=== PATIENT | female | born 2000 | race African-American/Black ===

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

== ENCOUNTER 2024-04-05 13:50 | Observation (INO) | payer MEDICAID ==
[~2024-04-05 13:50] MED LIST changes: -NIF10C PO; +NIFE10CA52 PO
== END 2024-04-05 14:10 | disposition home or self-care (01) ==
LOC: LDRP 13:50 → UNDOADMOB 13:50 → LDRP 14:06 → UNDODISOB 14:10
PROVIDERS: ADMIT Obstetrics & Gynecology; ATTEND Obstetrics & Gynecology
DX: O09.292 Supervision of pregnancy with other poor reproductive or obstetric history, second trimester (principal); O62.9 Abnormality of forces of labor, unspecified; O99.322 Drug use complicating pregnancy, second trimester; F12.90 Cannabis use, unspecified, uncomplicated; Z87.59 Personal history of other complications of pregnancy, childbirth and the puerperium; Z3A.27 27 weeks gestation of pregnancy
CPT/HCPCS: 59025; 81002; 94760; G0378

== ENCOUNTER 2024-04-12 12:17 | Observation (INO) | payer MEDICAID | END 2024-04-12 13:32 | disposition home or self-care (01) | LOC: LDRP 12:17 | PROVIDERS: ADMIT Obstetrics & Gynecology; ATTEND Obstetrics & Gynecology | DX: O09.292 Supervision of pregnancy with other poor reproductive or obstetric history, second trimester (principal); O99.322 Drug use complicating pregnancy, second trimester; F12.90 Cannabis use, unspecified, uncomplicated; Z3A.28 28 weeks gestation of pregnancy | CPT/HCPCS: 59025; 81002; G0378 ==

== ENCOUNTER 2024-04-19 11:11 | Observation (INO) | payer MEDICAID ==
[~2024-04-19 11:11] MED LIST changes: +ACET500T58 PO; +AMOX875T4 PO
== END 2024-04-19 14:12 | disposition home or self-care (01) ==
LOC: LDRP 13:18
PROVIDERS: ADMIT Obstetrics & Gynecology; ATTEND Obstetrics & Gynecology
DX: O62.9 Abnormality of forces of labor, unspecified (principal); Z3A.29 29 weeks gestation of pregnancy; Z79.899 Other long term (current) drug therapy
CPT/HCPCS: 59025; 81002; 94760; G0378

== ENCOUNTER 2024-04-26 04:41 | Observation (INO) | payer MEDICAID ==
[~2024-04-26] VITALS: Ht 149.9 cm; Wt 60.3 kg
== END 2024-05-03 15:10 | disposition home or self-care (01) ==
LOC: LDRP 05-03 13:10
PROVIDERS: ADMIT Obstetrics & Gynecology; ATTEND Obstetrics & Gynecology
DX: O09.93 Supervision of high risk pregnancy, unspecified, third trimester (principal); Z3A.31 31 weeks gestation of pregnancy; Z87.59 Personal history of other complications of pregnancy, childbirth and the puerperium
CPT/HCPCS: 59025; 76818; 81002; 94760; G0378

== ENCOUNTER 2024-05-05 13:10 | Observation (INO) | payer MEDICAID | END 2024-05-05 15:20 | disposition home or self-care (01) | LOC: UNDOADMOB 13:10 → LDRP 13:10 | PROVIDERS: ADMIT Obstetrics & Gynecology; ATTEND Obstetrics & Gynecology | DX: O36.8330 Maternal care for abnormalities of the fetal heart rate or rhythm, third trimester, not applicable or unspecified (principal); Z3A.32 32 weeks gestation of pregnancy | CPT/HCPCS: 59025; 76818; 81002; G0378 ==

== ENCOUNTER 2024-05-10 12:45 | Observation (INO) | payer MEDICAID | END 2024-05-10 14:55 | disposition home or self-care (01) | LOC: LDRP 12:45 | PROVIDERS: ADMIT Obstetrics & Gynecology; ATTEND Obstetrics & Gynecology | DX: O42.913 Preterm premature rupture of membranes, unspecified as to length of time between rupture and onset of labor, third trimester (principal); Z3A.32 32 weeks gestation of pregnancy | CPT/HCPCS: 59025; 76818; 81002; G0378 ==

== ENCOUNTER 2024-05-12 11:42 | Observation (INO) | payer MEDICAID | END 2024-05-12 13:08 | disposition home or self-care (01) | LOC: LDRP 11:42 | PROVIDERS: ADMIT Obstetrics & Gynecology; ATTEND Obstetrics & Gynecology | DX: O60.03 Preterm labor without delivery, third trimester (principal); Z3A.33 33 weeks gestation of pregnancy; Z79.899 Other long term (current) drug therapy | CPT/HCPCS: 59025; 76818; 81002; 94760; G0378 ==

== ENCOUNTER 2024-05-17 12:34 | Observation (INO) | payer MEDICAID | END 2024-05-17 15:00 | disposition home or self-care (01) | LOC: UNDOADMOB 12:34 → LDRP 12:34 | PROVIDERS: ADMIT Obstetrics & Gynecology; ATTEND Obstetrics & Gynecology | DX: O60.03 Preterm labor without delivery, third trimester (principal); Z3A.33 33 weeks gestation of pregnancy | CPT/HCPCS: 59025; 76818; 81002; 94760; G0378 ==

== ENCOUNTER 2024-05-19 12:45 | Observation (INO) | payer MEDICAID | END 2024-05-19 15:00 | disposition home or self-care (01) | LOC: UNDOADMOB 12:45 → LDRP 12:45 | PROVIDERS: ADMIT Obstetrics & Gynecology; ATTEND Obstetrics & Gynecology | DX: O60.03 Preterm labor without delivery, third trimester (principal); O99.323 Drug use complicating pregnancy, third trimester; F12.90 Cannabis use, unspecified, uncomplicated; Z3A.34 34 weeks gestation of pregnancy | CPT/HCPCS: 59025; 76818; 81002; 94760; G0378 ==

== ENCOUNTER 2024-05-24 06:48 | Observation (INO) | payer MEDICAID | END 2024-05-24 14:22 | disposition home or self-care (01) | LOC: UNDOADMOB 12:48 → LDRP 12:48 | PROVIDERS: ADMIT Obstetrics & Gynecology; ATTEND Obstetrics & Gynecology | DX: O60.03 Preterm labor without delivery, third trimester (principal); Z3A.34 34 weeks gestation of pregnancy; Z79.899 Other long term (current) drug therapy | CPT/HCPCS: 59025; 76818; 81002; 94760; G0378 ==

== ENCOUNTER 2024-05-26 14:30 | Observation (INO) | payer MEDICAID | END 2024-05-26 16:28 | disposition home or self-care (01) | LOC: LDRP 14:30 | PROVIDERS: ADMIT Obstetrics & Gynecology; ATTEND Obstetrics & Gynecology | DX: O60.03 Preterm labor without delivery, third trimester (principal); Z3A.35 35 weeks gestation of pregnancy; Z98.890 Other specified postprocedural states; Z79.899 Other long term (current) drug therapy | CPT/HCPCS: 59025; 76818; 81002; 94760; G0378 ==

== ENCOUNTER 2024-05-31 12:53 | Observation (INO) | payer MEDICAID | END 2024-05-31 14:45 | disposition home or self-care (01) | LOC: UNDOADMOB 12:53 → LDRP 12:53 | PROVIDERS: ADMIT Obstetrics & Gynecology; ATTEND Obstetrics & Gynecology | DX: O60.03 Preterm labor without delivery, third trimester (principal); O99.323 Drug use complicating pregnancy, third trimester; F12.90 Cannabis use, unspecified, uncomplicated; Z3A.35 35 weeks gestation of pregnancy | CPT/HCPCS: 59025; 76818; 81002; 94760; G0378 ==

== ENCOUNTER 2024-06-02 12:18 | Observation (INO) | payer MEDICAID | END 2024-06-02 14:28 | disposition home or self-care (01) | LOC: LDRP 13:14 → UNDOADMOB 13:14 → LDRP 13:22 | PROVIDERS: ADMIT Obstetrics & Gynecology; ATTEND Obstetrics & Gynecology | DX: O60.03 Preterm labor without delivery, third trimester (principal); Z3A.36 36 weeks gestation of pregnancy; Z79.899 Other long term (current) drug therapy; Z98.890 Other specified postprocedural states | CPT/HCPCS: 59025; 76818; 81002; 94760; G0378 ==

== ENCOUNTER 2024-06-07 07:32 | Observation (INO) | payer MEDICAID | END 2024-06-07 14:31 | disposition home or self-care (01) | LOC: UNDOADMOB 12:48 → LDRP 12:48 | PROVIDERS: ADMIT Obstetrics & Gynecology; ATTEND Obstetrics & Gynecology | DX: Z34.83 Encounter for supervision of other normal pregnancy, third trimester (principal); Z3A.36 36 weeks gestation of pregnancy; Z79.899 Other long term (current) drug therapy; Z98.890 Other specified postprocedural states | CPT/HCPCS: 59025; 76818; 81002; 94760; G0378 ==

== ENCOUNTER 2024-06-09 12:49 | Observation (INO) | payer MEDICAID ==
[~2024-06-09 12:49] MED LIST changes: -ACET500T58 PO; -AMOX875T4 PO; -NIFE10CA52 PO
== END 2024-06-09 14:35 | disposition home or self-care (01) ==
LOC: LDRP 12:49
PROVIDERS: ADMIT Obstetrics & Gynecology; ATTEND Obstetrics & Gynecology
DX: O09.293 Supervision of pregnancy with other poor reproductive or obstetric history, third trimester (principal); Z3A.37 37 weeks gestation of pregnancy; Z87.59 Personal history of other complications of pregnancy, childbirth and the puerperium
CPT/HCPCS: 59025; 76818; 81002; 94760; G0378

== ENCOUNTER 2024-06-11 21:51 | Observation (INO) | payer MEDICAID | END 2024-06-11 23:31 | disposition home or self-care (01) | LOC: LDRP 21:51 | PROVIDERS: ADMIT Obstetrics & Gynecology; ATTEND Obstetrics & Gynecology | DX: O47.1 False labor at or after 37 completed weeks of gestation (principal); O42.92 Full-term premature rupture of membranes, unspecified as to length of time between rupture and onset of labor; O26.893 Other specified pregnancy related conditions, third trimester; N89.8 Other specified noninflammatory disorders of vagina; Z3A.37 37 weeks gestation of pregnancy | CPT/HCPCS: 59025; 81002; 94760; G0378 ==

== ENCOUNTER 2024-06-14 01:37 | Inpatient (IN) | payer MEDICAID ==
[~2024-06-14] VITALS: Ht 147.3 cm; Wt 64.4 kg
[2024-06-14] MEDS ORDERED: NALBUPHINE HCL 10 MG/1ml INJECTION IM PRN (23:00)
[2024-06-14] MEDS ORDERED: NALBUPHINE HCL 10 MG/1ml INJECTION IV PRN (23:00)
[2024-06-14] MEDS ORDERED: LIDOCAINE 2%HCL (LOCAL ANESTH.) INJ 20ML MDV IJ PRN (23:00)
[2024-06-14] MEDS: LACT. RINGERS/OXYTOCIN 20UNITS 1,000 ML IV ONE (23:10)
[2024-06-14] MEDS: ONDANSETRON HCL 4 MG/2 ML VIAL IV PRN (23:12)
[2024-06-14] MEDS: ONDANSETRON HCL 4 MG/2 ML VIAL ONE (23:12)
[2024-06-14] MEDS: LACTATED RINGER'S 1,000 ML IV SCH (23:12)
[2024-06-14] MEDS: PHISODERM TOP SOLN 240ML BTL TOP PRN (23:14)
[2024-06-14] MEDS: WITCH HAZEL-GLYCERIN PAD TOP PRN (23:14)
[2024-06-14] MEDS: DERMOPLAST 60ML BOTTLE TOP PRN (23:14)
[2024-06-14 23:32] LABS: Basophils # (auto) 0 10 ^3/uL (0-0.2); Basophils % (auto) 0.1 % (0.0-2.0); Eosinophils # (auto) 0 10 ^3/uL (0-0.8); Eosinophils % (auto) 0.1 % (0.0-7.0); Lymphocytes # (auto) 1.7 10 ^3/uL (0.4-5.4); Monocytes # (auto) 0.6 10 ^3/uL (0-1.3); Nucleated Red Blood Cells % 0.1 %
[2024-06-14 23:34] LABS: Hematocrit 27.5 % (36.0-46.0); Lymphocytes % (auto) 23.8 % (10.0-50.0); Mean Corpuscular Hemoglobin 24.2 pg (28.0-32.0); Mean Corpuscular Hgb Conc. 32.8 g/dL (32.0-36.0); Mean Corpuscular Volume 73.8 fL (80.0-100.0); Neutrophils # (auto) 4.8 10 ^3/uL (1.6-8.6); Platelet Count (auto) 355 10^3/uL (140-450); Red Blood Cells 3.73 10^6/uL (4.0-5.20); Red Cell Distribution Width 18.3 % (11.8-14.3); White Blood Cell 7.1 10^3/uL (4.4-10.8)
[2024-06-14] MEDS ORDERED: ePHEDrine SULFATE 50 MG/ML AMP IV ONE (23:45)
[2024-06-14] MEDS ORDERED: NALOXONE HCL 0.4 MG/ML VIAL IV ONE (23:45)
[2024-06-14 23:49] LABS: Albumin 3.8 g/dL (3.2-4.8); Alkaline Phosphatase 267 U/L (46-116); Anion Gap 9 (5-15); Aspartate Aminotransferase 12 U/L (13-40); Calcium 9.2 mg/dL (8.7-10.4); Carbon Dioxide 22 mmol/L (20-31); Chloride 107 mmol/L (98-107); Glucose 84 mg/dL (74-106); Potassium 3.4 mmol/L (3.5-5.1); Sodium 138 mmol/L (136-145)
[2024-06-14 23:50] LABS: Bilirubin, Total 0.4 mg/dL (0.2-1.0); Total Protein 6.8 g/dL (5.7-8.2)
[2024-06-14 23:51] LABS: Alanine Aminotransferase 9 U/L (7-40); BUN/Creatinine Ratio 10.2 (10.0-20.0); Blood Urea Nitrogen < 5 mg/dL (9-23)
[2024-06-14 23:52] LABS: INR 0.97 (0.9-1.15); Partial Thromboplastin Time 25.1 SEC (24.5-34.5); Prothrombin Time 10.3 sec (9.3-11.8)
--- NOTE | 2024-06-15 00:02 | DVHHP2 ---
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 Presented with active labor, membranes intact, 5cm dilated on arrival. Pain is moderate to severe. Denies vaginal bleeding GBS neg. Past Medical History Cardiac: No pertinent Hx Pulmonary: No pertinent Hx Central Nervous System: No pertinent Hx GI: No pertinent Hx Hemotology/Oncology: Anemia NOS Hepatobiliary: No pertinent Hx Psychiatric: No pertinent Hx Musculoskeletal: No pertinent Hx Rheumotologic: No pertinent Hx Infectious Disease: No peritnent Hx ENT: No pertinent Hx Renal/: No pertinent Hx Endocrine: No pertinent Hx Dermatology: No pertinent Hx Past Surgical History: No pertinent Hx OB History OB History Care: Good Care Ultrasounds: Normal mid trimester US Obstetrical Complications: None Medical Complications: None Other Concerns: Moderate microcytic anemia, Hb 9.0 Allergies: Coded Allergies: NO KNOWN ALLERGIES (Unverified , 02/26/20) Home Meds Reported Medications Vit W/ Ferrous Fumara ( One Daily) Daily Tab, 1 TAB PO DAILY, #90 TAB 3 Refills 03/14/20 Current Medications Current Medications Medications (Trade) Dose Ordered Sig/Ivan Route PRN Reason Start Time Stop Time Status Last Admin Lactated Ringer's 1,000 ml @ 125 mls/hr Q8H IV 06/14/24 23:00 06/14/24 23:12 Nalbuphine HCl (Nubain) 10 mg Q4HP PRN IM MODERATE PAIN (4-6 PAIN SCALE) 06/14/24 23:00 Nalbuphine HCl (Nubain) 10 mg Q4HP PRN IV MODERATE PAIN (4-6 PAIN SCALE) 06/14/24 23:00 Witfrida Ayoubel (Tucks) 1 pad PRN PRN TOP PERINEAL AREA DISCOMFORT 06/14/24 23:00 06/14/24 23:14 Sodium Lauryl Sulfate (Phisoderm) 240 ml PRN PRN TOP PERINEAL AREA DISCOMFORT 06/14/24 23:00 06/14/24 23:14 Benzocaine (Dermoplast) 1 applic PRN PRN TOP PERINEAL AREA DISCOMFORT 06/14/24 23:00 06/14/24 23:14 Lidocaine HCl (Xylocaine) 20 ml ONCE PRN IJ PERINEAL AREA DISCOMFORT 06/14/24 23:00 Ondansetron HCl (Zofran) 4 mg Q4HPRN PRN IV NAUSEA / VOMITING 06/14/24 23:00 06/14/24 23:12 Family & Social History Family/Social History Blood Type: A+ Rubella: immune RPR/VDRL: Negative GBS Status: Negative HBsAG: Negative Review of Systems Constitutional: No symptom reported Ears, Nose, & Throat: No symptom reported Eyes: No symptom reported Pulmonary/Respiratory: No symptom reported Cardiovascular: No symptom reported Gastrointestinal: No symptom reported Genitourinary: No symptom reported Musculoskeletal: No symptom reported Skin: No symptom reported Psychiatric: No symptom reported Endocrine: No symptom reported Hemotologic/Lymphatic: No symptom reported OB Admission Exam Physical Exam HEENT: NCAT Heart: Rhythm Normal Lungs: Clear Abdomen: Gravid Extremities: Normal Reflexes: Normal Pelvic Exam: RN exam 5/70/-2 VTX Heart Rate: 130's Accelerations: Accelerations Present Decelerations: No Decelerations Short Term Variability: Present Jail Variability: Average (6-25) Contractions on Admission: 6-10 Minutes Apart Intensity: Moderate OB Plan Plan Admitting Diagnosis: Early Term, IUP 37.5 wk in spontaneous labor Microcytic anemia GBS neg Plan: Expectant Management Other Plan: Admit for labor and delivery anticipated Epidural desired JELLY DAWSON DO Jun 15, 2024 00:02
[2024-06-15] MEDS: LACTATED RINGER'S 1,000 ML IV ONE (00:13)
[2024-06-15] MEDS: fentaNYL CITRATE 100 MCG/2 ML VL IV ONE (00:46)
[2024-06-15] MEDS: ROPIVACAINE HCL 200 ML ONE (00:47)
--- NOTE | 2024-06-15 01:06 | EPIDURAL ---
Anesthesia Procedural Note - Epidural Informed consent obtained?: Yes Medication Administered: Fentanyl 100 mcg Sterile prept drape: Yes Spinal level of insertion: L4-L5 Test dose of lidocaine & Epine: Negative Infusion started: Yes Start time: 00:19 End time: 00:55 Procedure description Procedure description: Called for labor analgesia. Chart reviewed, history taken and patient examined at 0019 (BP 134/75 HR 105 spO2 99). Patient is at 37+6, brought in by ambulance in labor, requesting epidural. Informed consent for CSE obtained. Sitting position, sterile prep and drape. Time out done at 0022 (BP 130/80 HR 108 spO2 99). L3-4 space infiltrated with 1% lido. Epidural needle placed with MARSHA at 4cm. A few drops of clear fluid from needle apparent after stylet removed, questionable for CSF. Needle removed. L4-5 space infiltrated with 1% lido. Epidural needle placed with MARSHA at 4.5 cm. 25G spinal needle +clear CSF. 15mcg fentanyl given IT. Epidural catheter secured at 9cm at 0033 (BP 131/70 HR 110 spO2 98). Aspiration and test dose (3cc 1.5% lido with epi) negative at 0034. 85mcg fentanyl 3cc 2% PF lido given via catheter (BP 119/63 HR 110 spO2 98). Patient reports pain relief. 0.2% ropivacaine infusion started at 0049 (119/65 HR 109 spO2 99). Will follow as needed. DON WILSON MD Jun 15, 2024 01:06
[2024-06-15 02:20] LABS: Amphetamine Screen, Urine Neg (NEGATIVE)
[2024-06-15 02:21] LABS: Barbiturate Scree,Urine Neg (NEGATIVE); Benzodiazephine Screen, Urine Neg (NEGATIVE); Cannabinoid Screen, Urine Neg (NEGATIVE); Cocaine Screen, Urine Neg (NEGATIVE); Opiate Scree,Urine Neg (NEGATIVE); Phencyclidine Screen, Urine Neg (NEGATIVE)
--- NOTE | 2024-06-15 02:21 | LDN2 ---
Labor and Delivery Note Date 06/15/24 Age 23 3 Para 3 EGA 37.6 Diagnosis Early Term IUP in spontaneous labor s/p Vaginal Delivery: VTX Vacuum Assisted: No Placenta: Spontaneous Sex: Female Weight Pending Apgars 8/9 Amniotic Fluid: Clear Anesthesia Epidural Episiotomy: No Repaired with N/A EBL 25 mL Labs Blood Bank 06/14/24 23:17: Blood Type A POSITIVE Complications None JELLY DAWSON DO Jun 15, 2024 02:21
[2024-06-15] MEDS: LACT. RINGERS/OXYTOCIN 20UNITS 500 ML IV ONE ×2 (02:44)
[2024-06-15] MEDS: LIDOCAINE HCL 2 %PF INJ 10ML AMP IJ ONE (02:45)
[2024-06-15] MEDS: IBUPROFEN 600 MG TAB PO PRN (04:38)
[2024-06-15 07:30] VITALS: BP 110/74; PULSE 71; RESP 18; TEMP 98.4; O2SAT 95
[2024-06-15 10:30] VITALS: BP 112/76; PULSE 72; RESP 18; TEMP 98.3; O2SAT 96
[2024-06-15] MEDS: ACETAMINOPHEN 325 MG TAB PO PRN (10:59)
[2024-06-15 14:08] LABS: Basophils # (auto) 0 10 ^3/uL (0-0.2); Basophils % (auto) 0.1 % (0.0-2.0); Eosinophils # (auto) 0 10 ^3/uL (0-0.8); Hemoglobin 9.3 g/dL (12.2-16.2); Lymphocytes # (auto) 1.8 10 ^3/uL (0.4-5.4); Lymphocytes % (auto) 16.2 % (10.0-50.0); Mean Corpuscular Hemoglobin 23.4 pg (28.0-32.0); Mean Corpuscular Hgb Conc. 32.2 g/dL (32.0-36.0); Mean Corpuscular Volume 72.8 fL (80.0-100.0); Monocytes # (auto) 0.9 10 ^3/uL (0-1.3); Monocytes % (auto) 8.4 % (0.0-12.0); Neutrophils # (auto) 8.3 10 ^3/uL (1.6-8.6); Neutrophils % (auto) 75.3 % (37.0-80.0); Nucleated Red Blood Cells % 0.1 %; Platelet Count (auto) 338 10^3/uL (140-450); Red Blood Cells 3.98 10^6/uL (4.0-5.20)
[2024-06-15 14:38] VITALS: BP 135/74; PULSE 90; RESP 16; TEMP 98.3
[2024-06-15 15:00] VITALS: BP 127/84; PULSE 84; RESP 16; TEMP 98.4; O2SAT 94
[2024-06-15 18:50] VITALS: BP 135/74; PULSE 90; RESP 16; TEMP 98.5
[2024-06-15] MEDS: POTASSIUM CHL 20 Meq TABLET PO ONE (20:02)
[2024-06-15 20:12] LABS: Protein, Urine 15.6 mg/dL (1-14)
[2024-06-15 20:14] LABS: Creatinine, Urine 61.76 mg/dL (30.0-125.0); Urine Protein/Creatinine Ratio 0.25
[2024-06-15] MEDS ORDERED: DOCUSATE SOD 100 MG CAP PO SCH (22:00)
[2024-06-15 22:55] VITALS: BP 115/74; PULSE 88; RESP 16; TEMP 98.7
[2024-06-16] MEDS ORDERED: ACET-1882 PO (00:10)
[2024-06-16] MEDS ORDERED: DOCU-265 PO (00:10)
[2024-06-16] MEDS ORDERED: DOCU-94 PO (00:10)
[2024-06-16] MEDS ORDERED: IBU600T PO (00:10)
[2024-06-16] MEDS ORDERED: FER325T PO (00:10)
--- NOTE | 2024-06-16 00:12 | DVHPN2 ---
Progress Note Date Seen: Jun 16, 2024 Subjective S: bleeding is less, eating food without issues, denies lightheaded/dizziness, pain well controlled with oral medications, no concerns with urinating, passing flatus, no BM yet, ambulating well, and formula vital signs Vital Sign Date Time Temp Pulse Resp B/P (MAP) Pulse Ox O2 Delivery O2 Flow Rate FiO2 06/15/24 22:55 98.7 88 16 115/74 (88) 98.7 06/15/24 19:10 Room Air 06/15/24 15:00 94 Total Intake and Output 06/15/24 06/15/24 06/16/24 15:00 23:00 07:00 Output Total 950 ml Balance -950 ml medications Current Medications Medications Dose Ordered Sig/Ivan Route Start Time Stop Time Status Last Admin Dose Admin Nalbuphine HCl 10 mg Q4HP PRN IM 06/14/24 23:00 Cancel Nalbuphine HCl 10 mg Q4HP PRN IV 06/14/24 23:00 Cancel Witch Melissa 1 pad PRN PRN TOP 06/14/24 23:00 06/14/24 23:14 1 PAD Sodium Lauryl Sulfate 240 ml PRN PRN TOP 06/14/24 23:00 06/14/24 23:14 240 ML Benzocaine 1 applic PRN PRN TOP 06/14/24 23:00 06/14/24 23:14 1 APPLIC Lidocaine HCl 20 ml ONCE PRN IJ 06/14/24 23:00 Cancel Ondansetron HCl 4 mg Q4HPRN PRN IV 06/14/24 23:00 06/14/24 23:12 4 MG Ibuprofen 600 mg Q6HP PRN PO 06/15/24 03:45 06/15/24 19:58 600 MG Acetaminophen 650 mg Q4HP PRN PO 06/15/24 03:45 06/15/24 19:57 650 MG Docusate Sodium 200 mg HS PO 06/15/24 22:00 laboratory and microbiology Laboratory Tests 06/15/24 13:51 06/14/24 23:17 Test 06/14/24 23:17 Range/Units Serum Glucose 84 74-106 mg/dL Objective O: VSS Chest: heart sounds normal and lung sounds clear bilaterally Abd: soft, non-tender, fundus at U/firm/midline, active bowel sounds, no rebound or guarding Perineum: intact perineum, no erythema/edema noted Ext: Non-tender, No edema, 2+ BLE DTRs Lochia: minimal See lab results Hypokalemia resolved with potassium 40 mEq PO once Problems(with codes): (1) (normal spontaneous vaginal delivery) (2) Intact perineum (3) Iron deficiency anemia of mother during Assessment/Plan A: 23yo now PPD#1 s/p Anemia Rh+ Rubella Immune and formula Pain control with PO medications Bowel regimen P: D/C home today Rx sent to pharmacy precautions and preeclampsia warning signs reviewed F/U with [facility] office in 2 weeks Plan discussed with: Patient AMY VEE CNM Jun 16, 2024 00:12
--- NOTE | 2024-06-16 00:12 | DVHDS2 ---
Obstetrics Discharge Summary Obstetrics Discharge Summary Date of Admission: Jun 14, 2024 Date of Discharge: Jun 16, 2024 Reason For Admission: Onset of Labor Procedures: NST Intrapartum Procedures: Spontaneous vaginal deliv Procedures: Hct/date: (06/15/24), Hgb/date: (06/15/24) Operative Complicat: None Discharge Diagnosis: Term -Delivered Discharge Information: Activity (as tolerated, no heavy lifting and nothing in the vagina for 6 weeks), Diet (Routine), Medications (Rx sent), Instructions (Routine), Discharge to (Home), Accompanied by (partner), Discarge date (06/16/24) AMY VEE CNM Jun 16, 2024 00:12
[2024-06-16 02:38] VITALS: BP 118/62; PULSE 79; RESP 16; TEMP 98.4
[2024-06-16] MEDS: HYDROcodone-ACET 5/325MG TAB PO PRN (06:01)
[2024-06-16 07:00] VITALS: BP 118/70; PULSE 77; RESP 16; TEMP 98.2
[2024-06-16 07:06] LABS: RPR Non Reactive (Non Reactive)
[2024-06-16 07:08] LABS: Urine Bacteria None Seen /hpf (None Seen)
[2024-06-16 08:04] LABS: Urine Blood 1+ /uL (Negative); Urine Clarity Clear (Clear); Urine Color Light-Yellow (Yellow); Urine Protein, UAD Negative (Negative); Urine Specific Gravity 1.005 (1.001-1.035); Urine Urobilinogen Normal (Negative); Urine WBC <1 /hpf (0 - 5)
[2024-06-16 09:35] LABS: Albumin 3.4 g/dL (3.2-4.8); Alkaline Phosphatase 216 U/L (46-116); Anion Gap 9 (5-15); Aspartate Aminotransferase 15 U/L (13-40); Calcium 9.2 mg/dL (8.7-10.4); Carbon Dioxide 23 mmol/L (20-31); Chloride 110 mmol/L (98-107); Glucose 91 mg/dL (74-106); Potassium 4.1 mmol/L (3.5-5.1); Sodium 142 mmol/L (136-145)
[2024-06-16 09:36] LABS: Bilirubin, Total 0.2 mg/dL (0.2-1.0); Total Protein 6.5 g/dL (5.7-8.2)
[2024-06-16 10:08] LABS: Alanine Aminotransferase 9 U/L (7-40); BUN/Creatinine Ratio 8.5 (10.0-20.0); Blood Urea Nitrogen < 5 mg/dL (9-23)
[2024-06-16 11:00] VITALS: BP 133/85; PULSE 83; RESP 18; TEMP 98.4
== END 2024-06-16 14:17 | disposition home or self-care (01) | DRG 560 ==
LOC: LDRP 22:35 → OBSVTOIN 22:49 → LDRP 22:50
PROVIDERS: ADMIT Obstetrics & Gynecology; ATTEND Obstetrics & Gynecology
PROC: 10E0XZZ Delivery of Products of Conception, External Approach (ICD-10-PCS; principal; 2024-06-15)
PROC: 3E0R3BZ Introduction of Anesthetic Agent into Spinal Canal, Percutaneous Approach (ICD-10-PCS; 2024-06-15)
PROC: 00HU33Z Insertion of Infusion Device into Spinal Canal, Percutaneous Approach (ICD-10-PCS; 2024-06-15)
DX: O99.02 Anemia complicating childbirth (principal); Z37.0 Single live birth; D50.9 Iron deficiency anemia, unspecified; Z3A.37 37 weeks gestation of pregnancy
CPT/HCPCS: 36415; 59025; 59409; 62282; 80053; 80307; 81001; 82570; 84156; 85025; 85610; 85730; 86592; 86803; 86850; 86900; 86901; 94760; 96360; 96361; 96365; 96366; 96374; G0378; J2405; J2590